=== PATIENT | female | born 1950 | race Caucasian/White ===

== ENCOUNTER 2024-06-25 06:16 | Day surgery (SDC) | payer MEDICARE, BC, SELFPAY ==
[2024-06-25 06:53] LABS: Glucose - Point of Care 97 mg/dl (70-99)
[2024-06-25 06:55] VITALS: BMI 31.0
[2024-06-25 06:56] VITALS: BMI 31.0
[2024-06-25 06:58] VITALS: BP 141/76
[2024-06-25 08:45] VITALS: BP 110/54
[2024-06-25 08:50] LABS: Glucose - Point of Care 94 mg/dl (70-99)
[2024-06-25 09:00] VITALS: BP 115/56
[2024-06-25 09:15] VITALS: BP 126/66
== END 2024-06-25 09:33 | disposition home or self-care (01) ==
LOC: SDS 06:16
PROVIDERS: ATTENDING PHYSICIAN Internal Medicine Gastroenterology; FAMILY PHYSICIAN Family Medicine
DX: Z12.11 Encounter for screening for malignant neoplasm of colon (principal); D12.2 Benign neoplasm of ascending colon; K64.9 Unspecified hemorrhoids; K29.50 Unspecified chronic gastritis without bleeding; K31.7 Polyp of stomach and duodenum; Z86.0101 Personal history of adenomatous and serrated colon polyps; Z87.19 Personal history of other diseases of the digestive system; K44.9 Diaphragmatic hernia without obstruction or gangrene
CPT/HCPCS: 45385; 43239; 88305; 82962; 88342